=== PATIENT | female | born 1950 | race Caucasian/White ===

== ENCOUNTER 2025-07-24 08:37 | Outpatient (CLI) | payer MEDICARE, OTHER, SELFPAY | END 2025-07-24 08:38 | disposition home or self-care (01) | LOC: WOUND 08:40 | PROVIDERS: PCP Family Medicine; Referring Provider Family Medicine; Visit Provider Nurse Practitioner Family | DX: L59.8 Other specified disorders of the skin and subcutaneous tissue related to radiation (principal); E11.622 Type 2 diabetes mellitus with other skin ulcer; L97.312 Non-pressure chronic ulcer of right ankle with fat layer exposed; C86.6 Primary cutaneous CD30-positive T-cell proliferations; I50.22 Chronic systolic (congestive) heart failure; Z79.4 Long term (current) use of insulin | CPT/HCPCS: 97597; G0463 ==

== ENCOUNTER 2025-07-31 09:27 | Outpatient (CLI) | payer MEDICARE, OTHER, SELFPAY | END 2025-07-31 09:28 | disposition home or self-care (01) | LOC: WOUND 09:28 | PROVIDERS: PCP Family Medicine; Visit Provider Nurse Practitioner Family | DX: L59.8 Other specified disorders of the skin and subcutaneous tissue related to radiation (principal); E11.622 Type 2 diabetes mellitus with other skin ulcer; L97.312 Non-pressure chronic ulcer of right ankle with fat layer exposed; C86.6 Primary cutaneous CD30-positive T-cell proliferations; I50.22 Chronic systolic (congestive) heart failure; Y84.2 Radiological procedure and radiotherapy as the cause of abnormal reaction of the patient, or of later complication, without mention of misadventure at the time of the procedure; Z79.4 Long term (current) use of insulin | CPT/HCPCS: 97597 ==

== ENCOUNTER 2025-08-07 09:21 | Outpatient (CLI) | payer MEDICARE, SELFPAY | END 2025-08-07 09:22 | disposition home or self-care (01) | LOC: WOUND 09:21 | PROVIDERS: PCP Family Medicine; Visit Provider Nurse Practitioner Family | DX: L59.8 Other specified disorders of the skin and subcutaneous tissue related to radiation (principal); E11.622 Type 2 diabetes mellitus with other skin ulcer; L97.312 Non-pressure chronic ulcer of right ankle with fat layer exposed; C86.6 Primary cutaneous CD30-positive T-cell proliferations; I50.22 Chronic systolic (congestive) heart failure; Z79.4 Long term (current) use of insulin; Y84.2 Radiological procedure and radiotherapy as the cause of abnormal reaction of the patient, or of later complication, without mention of misadventure at the time of the procedure | CPT/HCPCS: G0463 ==

== ENCOUNTER 2025-08-28 09:36 | Outpatient (CLI) | payer MEDICARE, SELFPAY | END 2025-08-28 09:37 | disposition home or self-care (01) | LOC: WOUND 09:37 | PROVIDERS: PCP Family Medicine; Visit Provider Nurse Practitioner Family | DX: L59.8 Other specified disorders of the skin and subcutaneous tissue related to radiation (principal); E11.622 Type 2 diabetes mellitus with other skin ulcer; L97.312 Non-pressure chronic ulcer of right ankle with fat layer exposed; I50.22 Chronic systolic (congestive) heart failure; C86.6 Primary cutaneous CD30-positive T-cell proliferations; Z79.4 Long term (current) use of insulin; Y84.2 Radiological procedure and radiotherapy as the cause of abnormal reaction of the patient, or of later complication, without mention of misadventure at the time of the procedure | CPT/HCPCS: G0463 ==

== ENCOUNTER 2025-09-04 09:42 | Outpatient (CLI) | payer MEDICARE, SELFPAY | END 2025-09-04 09:43 | disposition home or self-care (01) | LOC: WOUND 09:42 | PROVIDERS: PCP Family Medicine; Visit Provider Nurse Practitioner Family | DX: L59.8 Other specified disorders of the skin and subcutaneous tissue related to radiation (principal); E11.622 Type 2 diabetes mellitus with other skin ulcer; L97.312 Non-pressure chronic ulcer of right ankle with fat layer exposed; I50.22 Chronic systolic (congestive) heart failure; C86.6 Primary cutaneous CD30-positive T-cell proliferations; Z79.4 Long term (current) use of insulin; Y84.2 Radiological procedure and radiotherapy as the cause of abnormal reaction of the patient, or of later complication, without mention of misadventure at the time of the procedure | CPT/HCPCS: 11042; 11045 ==

== ENCOUNTER 2025-09-10 14:40 | Outpatient (CLI) | payer MEDICARE, SELFPAY | END 2025-09-10 14:41 | disposition home or self-care (01) | LOC: WOUND 14:40 | PROVIDERS: PCP Family Medicine; Visit Provider Nurse Practitioner Family | DX: L59.8 Other specified disorders of the skin and subcutaneous tissue related to radiation (principal); E11.622 Type 2 diabetes mellitus with other skin ulcer; L97.312 Non-pressure chronic ulcer of right ankle with fat layer exposed; I50.22 Chronic systolic (congestive) heart failure; C86.6 Primary cutaneous CD30-positive T-cell proliferations; Z79.4 Long term (current) use of insulin; Y84.2 Radiological procedure and radiotherapy as the cause of abnormal reaction of the patient, or of later complication, without mention of misadventure at the time of the procedure | CPT/HCPCS: 97597 ==

== ENCOUNTER 2025-09-18 09:37 | Outpatient (CLI) | payer MEDICARE, SELFPAY | END 2025-09-18 09:38 | disposition home or self-care (01) | LOC: WOUND 09:38 | PROVIDERS: PCP Family Medicine; Visit Provider Nurse Practitioner Family | DX: E11.622 Type 2 diabetes mellitus with other skin ulcer (principal); L97.312 Non-pressure chronic ulcer of right ankle with fat layer exposed; I50.22 Chronic systolic (congestive) heart failure; C86.6 Primary cutaneous CD30-positive T-cell proliferations; Z79.4 Long term (current) use of insulin; Y84.2 Radiological procedure and radiotherapy as the cause of abnormal reaction of the patient, or of later complication, without mention of misadventure at the time of the procedure | CPT/HCPCS: 11042 ==

== ENCOUNTER 2025-09-25 09:37 | Outpatient (CLI) | payer MEDICARE, SELFPAY | END 2025-09-25 09:38 | disposition home or self-care (01) | LOC: WOUND 09:37 | PROVIDERS: PCP Family Medicine; Visit Provider Nurse Practitioner Family | DX: E11.622 Type 2 diabetes mellitus with other skin ulcer (principal); L97.312 Non-pressure chronic ulcer of right ankle with fat layer exposed; I50.22 Chronic systolic (congestive) heart failure; C86.6 Primary cutaneous CD30-positive T-cell proliferations; Z79.4 Long term (current) use of insulin; Y84.2 Radiological procedure and radiotherapy as the cause of abnormal reaction of the patient, or of later complication, without mention of misadventure at the time of the procedure | CPT/HCPCS: 11042; 11045 ==

== ENCOUNTER 2025-10-09 09:19 | Outpatient (CLI) | payer MEDICARE, SELFPAY | END 2025-10-09 09:20 | disposition home or self-care (01) | LOC: WOUND 09:19 | PROVIDERS: PCP Family Medicine; Visit Provider Nurse Practitioner Family | DX: E11.622 Type 2 diabetes mellitus with other skin ulcer (principal); L97.312 Non-pressure chronic ulcer of right ankle with fat layer exposed; C86.6 Primary cutaneous CD30-positive T-cell proliferations; I89.0 Lymphedema, not elsewhere classified; I50.22 Chronic systolic (congestive) heart failure; Z79.4 Long term (current) use of insulin | CPT/HCPCS: 11042; 11045; G0463 ==

== ENCOUNTER 2025-10-16 09:35 | Outpatient (CLI) | payer MEDICARE, SELFPAY | END 2025-10-16 09:36 | disposition home or self-care (01) | LOC: WOUND 09:35 | PROVIDERS: PCP Family Medicine; Visit Provider Nurse Practitioner Family | DX: E11.622 Type 2 diabetes mellitus with other skin ulcer (principal); I89.0 Lymphedema, not elsewhere classified; L97.312 Non-pressure chronic ulcer of right ankle with fat layer exposed; C86.6 Primary cutaneous CD30-positive T-cell proliferations; I50.22 Chronic systolic (congestive) heart failure; Z79.4 Long term (current) use of insulin | CPT/HCPCS: 11042 ==

== ENCOUNTER 2025-11-06 09:32 | Outpatient (CLI) | payer MEDICARE, SELFPAY | END 2025-11-06 09:33 | disposition home or self-care (01) | LOC: WOUND 09:32 | PROVIDERS: PCP Family Medicine; Visit Provider Nurse Practitioner Family | DX: I89.0 Lymphedema, not elsewhere classified (principal); E11.9 Type 2 diabetes mellitus without complications; C86.6 Primary cutaneous CD30-positive T-cell proliferations; I50.22 Chronic systolic (congestive) heart failure; Z79.4 Long term (current) use of insulin | CPT/HCPCS: G0463 ==